=== PATIENT | female | born 1930 | race Caucasian/White ===

== ENCOUNTER 2016-09-22 18:19 | Emergency (ER) | payer OTHER ==
[~2016-09-22] VITALS: Ht 162.6 cm; Wt 61.2 kg
[~2016-09-22 18:19] MED LIST: CALC600T PO; CHOL1000 PO; CRD200 PO; CRG125 PO; LEVO50TA6 PO; LSX20 PO; NTRGSL/4 UT; OMEP20CA9 PO; POTA-74 PO; RANI150T2 PO; XNX25 PO
[2016-09-22 18:38] VITALS: TEMP 36.4; Ht 162.6 cm; Wt 61.2 kg
--- NOTE | 2016-09-22 20:06 | EMERGENCY ROOM VISIT NOTE ---
History Report prepared by Leidy: Aide Case Under the Supervision of: Dr. Rodney Ladd M.D. First contact with patient: 20:00 Chief Complaint: DIZZY Stated Complaint: FELL,HIT HEAD Nursing Triage Summary: pt fell and struck the back of her head at 1430, c/o feeling dizzy History of Present Illness The patient is a 86 year old female who presents to the Emergency Room with complaints of constant dizziness following a fall that occurred 5 hours prior to arrival. The patient states that she slipped due to her slippers and fell and hit the back of her head. She denies LOC but does state that after she was very dazed and dizzy. The patient notes and headache, slight neck pain and lower back pain. She denies abdominal pain or extremity pain. The patient has fallen twice in the past month and had a concussion. 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 Please see Additional Medical History Sheet. Past Medical & Surgical Medical Problems: (1) Heart disease (2) Hypertension (3) Incarcerated left inguinal hernia Family History Omitted due to advanced age Social History Smoking Status: Never Smoker Alcohol Use: none Drug Use: none Marital Status: Housing Status: lives with family Occupation Status: retired Current/Historical Medications Scheduled Alprazolam (Alprazolam), 0.25 MG PO QPM Amiodarone HCl (Amiodarone HCl), 200 MG PO QAM Calcium Carbonate (Calcium 600), 600 MG PO BID Carvedilol (Carvedilol), 12.5 MG PO BID Cholecalciferol (Vitamin D3), 1,000 INTER.UNIT PO QAM Levothyroxine Sodium (Levothyroxine Sodium), 50 MCG PO QAM Omeprazole (Prilosec), 40 MG PO QAM Potassium Chloride (Potassium Chloride Er), 10 MEQ PO BID Ranitidine HCl (Ranitidine HCl), 300 MG PO QPM Ranolazine (Ranexa), 500 MG PO BID Terazosin HCl (Terazosin HCl), 1 MG PO DAILY Scheduled PRN Furosemide (Furosemide), 20 MG PO QAM PRN for PRN Hydrocodone-Acetaminophen (Hydrocodone Bitartrate/Ac), 1 TAB PO DIRECTED PRN for Pain Nitroglycerin (Nitrostat), 0.4 MG UT UD PRN for Chest Pain Allergies Coded Allergies: Penicillins (Unverified Allergy, Severe, anaphylaxis, 09/22/16) Hydrochlorothiazide (Unverified Allergy, Unknown, UNKNOWN, 09/22/16) Physical Exam Vital Signs Date Time Temp Pulse Resp B/P Pulse Ox O2 Delivery O2 Flow Rate FiO2 09/22/16 21:52 71 18 159/81 98 09/22/16 20:59 78 16 172/86 96 Room Air 09/22/16 18:38 36.4 72 18 168/90 97 Room Air Physical Exam GENERAL: Patient awake, alert, oriented x 3. Patient follows commands. Patient does not appear toxic. Patient is adequately hydrated and well- nourished. SKIN: No erythema, pallor, cyanosis or rash. HEENT: No hematoma or skin break. Normal head, pupils equal, reactive to light and accommodation. Ears normal. Oral cavity and posterior pharynx appear normal. Neck: Without adenopathy, supple, nontender, no neck vein distention. LUNGS: Clear to auscultation. No wheezes, no rales, no rhonchi. HEART: No murmurs. No gallops. No rubs ABDOMEN: No masses, no rebound, no hepatomegaly or splenomegaly. EXTREMITIES: No signs of trauma. Stasis changes to bilateral lower legs, vague tenderness. NEUROLOGIC: Cranial nerves II-XII within normal limits. No gross motor sensory function deficits. Medical Decision & Procedures ER Provider Diagnostic Interpretation: CT results are interpretations by the radiologist and per my review. CT HEAD WITHOUT CONTRAST (CT) CLINICAL HISTORY: Head trauma. Dizziness. COMPARISON STUDY: 06/29/2016 TECHNIQUE: Axial CT of the brain is performed from the vertex to the skull base. IV contrast was not administered for this examination. CT DOSE: 537.48 mGy.cm FINDINGS: No intra or extra-axial mass lesions are visualized. There is no CT evidence of acute cortical infarction. There is no evidence of midline shift. There is no acute hemorrhage. No calvarial fractures are visualized. There are minimal white matter hypodensities likely on a small vessel basis. 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 There are involutional changes. There is no evidence of pathologic ventricular dilatation. There is no evidence of acute sinusitis IMPRESSION: No acute intracranial findings Electronically signed by: Ga Quintero M.D. 09/22/2016 8:34 PM Dictated Date/Time: 09/22/2016 8:33 PM ECG Indication: other (fall) Rate (beats per minute): 72 Rhythm: sinus rhythm Findings: PAC (occasional), no acute ischemic change ED Course B3: Past medical records reviewed. The patient was evaluated in room 2002. A complete history and physical examination was performed. 2148: Upon reevaluation, the patient appeared to have improvement of her symptoms. I discussed today's findings with her. She verbalized agreement of the treatment plan. She was discharged home. Medical Decision Nurses notes reviewed. Medical history sheet reviewed. Differential diagnosis includes but is not limited to: close head injury, fall. The patient incurred a mechanical fall when she slipped. EKG reveals no signs of acute infarction or significant arrhythmia. She does have occasional PACs. CAT scan of the head reveals no signs of an acute bleed or swelling. I do not believe the patient requires further imaging or blood work. She is currently on no anticoagulants. She is counseled about taking steps to prevent further falls. The patient's to take Tylenol as needed for headache. She is to follow- up with her family physician later this week. Impression Primary Impression: Closed head injury Scribe Attestation The scribe's documentation has been prepared under my direction and personally reviewed by me in its entirety. I confirm that the note above accurately reflects all work, treatment, procedures, and medical decision making performed by me. Departure Information Dispostion Home / Self-Care Referrals Abimael Pacheco M.D. (PCP) Forms HOME CARE DOCUMENTATION FORM, IMPORTANT VISIT INFORMATION Patient Instructions Falls Change Living Space, My [facility] [employer] Additional Instructions 650 mg of Tylenol every 4 hours as needed for headache. REST Follow-up with your family physician on Thursday. Return here sooner if your headache is getting worse or if you are having difficulty walking.
[2016-09-22] MEDS ORDERED: HYT1 PO (20:25)
[2016-09-22] MEDS ORDERED: RANO500T PO (20:25)
[2016-09-22] MEDS ORDERED: HYDR1TAB96 PO (20:25)
--- NOTE | 2016-09-22 20:35 | DIAGNOSTIC IMAGING REPORT ---
CT HEAD WITHOUT CONTRAST (CT) CLINICAL HISTORY: Head trauma. Dizziness. COMPARISON STUDY: 06/29/2016 TECHNIQUE: Axial CT of the brain is performed from the vertex to the skull base. IV contrast was not administered for this examination. CT DOSE: 537.48 mGy.cm FINDINGS: No intra or extra-axial mass lesions are visualized. There is no CT evidence of acute cortical infarction. There is no evidence of midline shift. There is no acute hemorrhage. No calvarial fractures are visualized. There are minimal white matter hypodensities likely on a small vessel basis. 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 There are involutional changes. There is no evidence of pathologic ventricular dilatation. There is no evidence of acute sinusitis IMPRESSION: No acute intracranial findings Electronically signed by: Ga Quintero M.D. 09/22/2016 8:34 PM Dictated Date/Time: 09/22/2016 8:33 PM
[2016-09-22 21:52] VITALS: BP 159/81; PULSE 71; O2SAT 98
== END 2016-09-22 21:53 | disposition home or self-care (01) ==
LOC: C.EDB 18:21
DX: S09.90XA Unspecified injury of head, initial encounter (principal); I11.9 Hypertensive heart disease without heart failure; Z79.899 Other long term (current) drug therapy; Z91.81 History of falling; Z87.828 Personal history of other (healed) physical injury and trauma; W01.10XA Fall on same level from slipping, tripping and stumbling with subsequent striking against unspecified object, initial encounter; Y99.8 Other external cause status

== ENCOUNTER 2017-04-28 20:59 | Emergency (ER) | payer OTHER ==
[~2017-04-28] VITALS: Ht 165.1 cm; Wt 62.1 kg
[~2017-04-28 20:59] MED LIST changes: +HYDR1TAB96 PO; +HYT1 PO; +RANO500T PO
[2017-04-28 21:04] VITALS: TEMP 36.5; Ht 165.1 cm; Wt 62.1 kg
--- NOTE | 2017-04-28 21:55 | EMERGENCY ROOM VISIT NOTE ---
History Report prepared by Leidy: Rey Davis Under the Supervision of: Dr. Albert Orourke D.O. First contact with patient: 21:46 Chief Complaint: HYPERTENSION Stated Complaint: HIGH BLOOD PRESSURE History of Present Illness The patient is a 87 year old female who presents to the Emergency Room with complaints of hypertension that began this afternoon. Her blood pressure has been fluctuating around 200/90. She notes to have taken it 3 different times today. Her baseline is normally 136-140/70-80. She states that her regular medications have not been working for her like they normally do. She denies any anxiety or medication changes. Source of History: patient Onset: this afternoon Position: other (Global) Symptom Intensity: 200/90 Quality: other (Hypertension) Timing: waxes/wanes Note: She denies any other symptoms. She denies any anxiety or medication changes as well. Review of Systems See HPI for pertinent positives and negatives. A total of ten systems were reviewed and were otherwise negative. Past Medical & Surgical Medical Problems: (1) Heart disease (2) Hypertension (3) Incarcerated left inguinal hernia Family History Omitted due to advanced age Social History Smoking Status: Never Smoker Alcohol Use: none Drug Use: none Marital Status: Housing Status: lives with family Occupation Status: retired Current/Historical Medications Scheduled Alprazolam (Alprazolam), 0.25 MG PO QPM Amiodarone HCl (Amiodarone HCl), 200 MG PO QAM Calcium Carbonate (Calcium 600), 600 MG PO BID Carvedilol (Carvedilol), 12.5 MG PO BID Cholecalciferol (Vitamin D3), 1,000 INTER.UNIT PO QAM Furosemide (Furosemide), 20 MG PO QAM Levothyroxine Sodium (Levothyroxine Sodium), 75 MG PO DAILY Omeprazole (Prilosec), 40 MG PO QAM Polyethylene (Polyethylene Glycol 3350), 1 DOSE PO DAILY Potassium Chloride (Potassium Chloride Er), 10 MEQ PO BID Ranitidine HCl (Ranitidine HCl), 300 MG PO QPM Ranolazine (Ranexa), 500 MG PO BID Terazosin Hcl (Hytrin), 2 MG PO DAILY Scheduled PRN Hydrocodone-Acetaminophen (Hydrocodone Bitartrate/Ac), 1 TAB PO DIRECTED PRN for Pain Nitroglycerin (Nitrostat), 0.4 MG UT UD PRN for Chest Pain Allergies Coded Allergies: Penicillins (Unverified Allergy, Severe, anaphylaxis, 04/28/17) Hydrochlorothiazide (Unverified Allergy, Unknown, UNKNOWN, 04/28/17) Physical Exam Vital Signs Date Time Temp Pulse Resp B/P (MAP) Pulse Ox O2 Delivery O2 Flow Rate FiO2 04/28/17 23:46 164/96 98 Room Air 04/28/17 23:31 181/80 04/28/17 23:30 56 18 95 04/28/17 23:01 187/87 04/28/17 23:00 57 15 98 04/28/17 22:47 57 16 183/83 96 Room Air 04/28/17 22:13 56 18 200/90 96 Room Air 04/28/17 22:12 95 Room Air 04/28/17 22:09 56 04/28/17 21:04 36.5 62 16 204/89 94 Room Air Physical Exam GENERAL: Awake, alert, well-appearing, in no distress HENT: Normocephalic, atraumatic. Oropharynx unremarkable. EYES: Normal conjunctiva. Sclera non-icteric. NECK: Supple. No nuchal rigidity. FROM. No JVD. RESPIRATORY: Clear to auscultation. CARDIAC: Regular rate, normal rhythm. Extremities warm and well perfused. Pulses equal. ABDOMEN: Soft, non-distended. No tenderness to palpation. No rebound or guarding. No masses. RECTAL: Deferred. MUSCULOSKELETAL: Chest examination reveals no tenderness. The back is symmetrical on inspection without obvious abnormality. There is no CVA tenderness to palpation. No joint edema. LOWER EXTREMITIES: Calves are equal size bilaterally and non-tender. No edema. No discoloration. NEURO: Normal sensorium. No sensory or motor deficits noted. SKIN: No rash or jaundice noted. Medical Decision & Procedures Laboratory Results 04/28/17 22:18 Red Blood Count 3.45, Mean Corpuscular Volume 100.0, Mean Corpuscular Hemoglobin 33.9, Mean Corpuscular Hemoglobin Concent 33.9, Mean Platelet Volume 8.5, Neutrophils (%) (Auto) 62.6, Lymphocytes (%) (Auto) 20.5, Monocytes (%) ( Auto) 13.2, Eosinophils (%) (Auto) 2.7, Basophils (%) (Auto) 0.4, Neutrophils # (Auto) 3.24, Lymphocytes # (Auto) 1.06, Monocytes # (Auto) 0.68, Eosinophils # ( Auto) 0.14, Basophils # (Auto) 0.02 04/28/17 22:18 Test 04/28/17 22:18 White Blood Count 5.17 K/uL (4.8-10.8) Red Blood Count 3.45 M/uL (4.2-5.4) Hemoglobin 11.7 g/dL (12.0-16.0) Hematocrit 34.5 % (37-47) Mean Corpuscular Volume 100.0 fL (80-100) Mean Corpuscular Hemoglobin 33.9 pg (25-34) Mean Corpuscular Hemoglobin Concent 33.9 g/dl (32-36) Platelet Count 180 K/uL (130-400) Mean Platelet Volume 8.5 fL (7.4-10.4) Neutrophils (%) (Auto) 62.6 % Lymphocytes (%) (Auto) 20.5 % Monocytes (%) (Auto) 13.2 % Eosinophils (%) (Auto) 2.7 % Basophils (%) (Auto) 0.4 % Neutrophils # (Auto) 3.24 K/uL (1.4-6.5) Lymphocytes # (Auto) 1.06 K/uL (1.2-3.4) Monocytes # (Auto) 0.68 K/uL (0.11-0.59) Eosinophils # (Auto) 0.14 K/uL (0-0.5) Basophils # (Auto) 0.02 K/uL (0-0.2) RDW Standard Deviation 49.2 fL (36.4-46.3) RDW Coefficient of Variation 13.7 % (11.5-14.5) Immature Granulocyte % (Auto) 0.6 % Immature Granulocyte # (Auto) 0.03 K/uL (0.00-0.02) Anion Gap 6.0 mmol/L (3-11) Est Creatinine Clear Calc Drug Dose 36.5 ml/min Estimated GFR () 62.3 Estimated GFR (Non- 53.8 BUN/Creatinine Ratio 16.1 (10-20) Calcium Level 8.8 mg/dl (8.5-10.1) Total Bilirubin 0.6 mg/dl (0.2-1) Direct Bilirubin 0.2 mg/dl (0-0.2) Aspartate Amino Transf (AST/SGOT) 20 U/L (15-37) Alanine Aminotransferase (ALT/SGPT) 16 U/L (12-78) Alkaline Phosphatase 75 U/L (45-117) Total Protein 7.0 gm/dl (6.4-8.2) Albumin 3.3 gm/dl (3.4-5.0) Medications Administered Medications (Trade) Dose Ordered Sig/Danelle Route Start Time Stop Time Status Last Admin Dose Admin Lorazepam (Ativan Tab) 0.5 mg NOW STAT PO 04/28/17 22:23 04/28/17 22:24 DC 04/28/17 22:44 0.5 MG Clonidine HCl (Catapres Tab) 0.2 mg NOW ONCE PO 04/28/17 22:30 04/28/17 22:31 DC 04/28/17 22:44 0.2 MG ECG Indication: other (HTN) Rate (beats per minute): 61 Rhythm: sinus rhythm Findings: nonspecific-ST abn, other (Normal intervals) ED Course 2145: The patient was evaluated in room B11B. A complete history and physical exam was performed. 2223: Ordered Ativan Tab 0.5 mg PO 2230: Ordered Catapres Tab 0.2 mg PO 0000: I reevaluated the patient. Discussed results and discharge instructions: She verbalized understanding and agreement. The patient is ready for discharge. Resting in no distress at midnight patient is nonfocal neurologically I discussed evaluation with the patient patient's family at bedside and her blood pressure is decreased we will refer her to her primary care physician for continued blood pressure control Medical Decision Differential diagnoses include hypertension, anxiety, and electrolyte abnormality. Medication Reconcilliation Current Medication List: was personally reviewed by me Blood Pressure Screening Patient's blood pressure: Elevated blood pressure Blood pressure disposition: Referred to PCP Impression Primary Impression: Hypertension Scribe Attestation The scribe's documentation has been prepared under my direction and personally reviewed by me in its entirety. I confirm that the note above accurately reflects all work, treatment, procedures, and medical decision making performed by me. Departure Information Dispostion Home / Self-Care Referrals Abimael Pacheco M.D. (PCP) Forms HOME CARE DOCUMENTATION FORM, IMPORTANT VISIT INFORMATION, WORK / SCHOOL INSTRUCTIONS Patient Instructions ED Hypertension Conf Out Of Control, My [facility] Additional Instructions Continue her blood pressure medications, follow-up primary care physician for further blood pressure evaluation
[2017-04-28 22:12] VITALS: O2SAT 95
[2017-04-28] MEDS ORDERED: LORAZEPAM 0.5 MG TAB PO STA (22:23)
[2017-04-28] MEDS ORDERED: HYT/2 PO (22:29)
[2017-04-28] MEDS ORDERED: LEVO75TA5 PO (22:29)
[2017-04-28] MEDS ORDERED: MRLP527 PO (22:29)
[2017-04-28] MEDS ORDERED: CLONIDINE HCL 0.1 MG TAB PO ONE (22:30)
[2017-04-28 22:36] LABS: BASO % 0.4 %; BASO ABS # 0.02 K/uL (0-0.2); COMPLETE YES; EOS % 2.7 %; HEMATOCRIT 34.5 % (37-47); IG% 0.6 %; LYMPH % 20.5 %; LYMPH ABS # 1.06 K/uL (1.2-3.4); MEAN CORPUSCULAR HEMOGLOBIN 33.9 pg (25-34); MEAN CORPUSCULAR HGB CONC 33.9 g/dl (32-36); MEAN PLATELET VOLUME 8.5 fL (7.4-10.4); MONO % 13.2 %; NEUT % 62.6 %; PLATELET COUNT 180 K/uL (130-400); RED BLOOD COUNT 3.45 M/uL (4.2-5.4); WHITE BLOOD COUNT 5.17 K/uL (4.8-10.8)
[2017-04-28 22:59] LABS: BUN/CREATININE RATIO 16.1 (10-20); CALCIUM 8.8 mg/dl (8.5-10.1); CREATININE 0.94 mg/dl (0.60-1.20); POTASSIUM 3.4 mmol/L (3.5-5.1)
[2017-04-28 23:30] VITALS: PULSE 56
[2017-04-28 23:46] VITALS: BP 164/96; O2SAT 98
== END 2017-04-29 00:01 | disposition home or self-care (01) ==
LOC: C.EDB 21:00
DX: I10 Essential (primary) hypertension (principal); Z79.899 Other long term (current) drug therapy

== ENCOUNTER 2017-09-20 16:51 | Emergency (ER) | payer OTHER ==
[~2017-09-20] VITALS: Ht 162.6 cm; Wt 62.0 kg
[~2017-09-20 16:51] MED LIST changes: +HYT/2 PO; -HYT1 PO; -LEVO50TA6 PO; +LEVO75TA5 PO; +MRLP527 PO
[2017-09-20 17:00] VITALS: TEMP 36.8; Ht 162.6 cm; Wt 62.0 kg
[2017-09-20] MEDS ORDERED: SODIUM CHLORIDE 0.9% 1000ML 1,000 ML IV STA (17:32)
[2017-09-20] MEDS ORDERED: SODIUM CHLORIDE 0.9% 250ML 250 ML IV STA (17:32)
--- NOTE | 2017-09-20 17:56 | DIAGNOSTIC IMAGING REPORT ---
CHEST ONE VIEW PORTABLE HISTORY: fall COMPARISON: Chest 06/29/2016. FINDINGS: No pneumothorax. No pleural effusions. Bibasilar linear densities consistent with subsegmental atelectasis. The lungs are otherwise clear. The heart is top normal in size. Lumbar spinal fusion hardware. Thoracic spine vertebral plasties. Large hiatus hernia, unchanged. IMPRESSION: No acute process within the chest. Large hiatus hernia. Electronically signed by: Donte Nunez M.D. 09/20/2017 5:55 PM Dictated Date/Time: 09/20/2017 5:54 PM
[2017-09-20 18:07] LABS: BASO % 0.2 %; BASO ABS # 0.01 K/uL (0-0.2); EOS % 1.4 %; EOS ABS # 0.09 K/uL (0-0.5); IG# 0.03 K/uL (0.00-0.02); LYMPH % 12.3 %; MEAN CELL VOLUME 102.3 fL (80-100); MEAN CORPUSCULAR HEMOGLOBIN 35.1 pg (25-34); MEAN CORPUSCULAR HGB CONC 34.3 g/dl (32-36); MEAN PLATELET VOLUME 9.1 fL (7.4-10.4); MONO % 11.6 %; MONO ABS # 0.76 K/uL (0.11-0.59); NEUT ABS # 4.84 K/uL (1.4-6.5); PLATELET COUNT 157 K/uL (130-400); RED CELL DISTRIBUTION WIDTH CV 13.8 % (11.5-14.5); WHITE BLOOD COUNT 6.53 K/uL (4.8-10.8)
[2017-09-20 18:17] LABS: INR 1.1 (0.9-1.1); PTT PATIENT 24.3 SECONDS (21.0-31.0)
[2017-09-20] MEDS ORDERED: GUAI100S6 PO (18:18)
[2017-09-20] MEDS ORDERED: TORS20TA2 PO (18:18)
[2017-09-20] MEDS ORDERED: BENZ1CAP90 PO (18:18)
[2017-09-20] MEDS ORDERED: ASPI81TA28 PO (18:18)
[2017-09-20] MEDS ORDERED: HYDR1TAB97 PO (18:18)
[2017-09-20] MEDS ORDERED: AMLO2.5T PO (18:18)
--- NOTE | 2017-09-20 18:19 | EMERGENCY ROOM VISIT NOTE ---
History Report prepared by Leidy: Selena Lord Under the Supervision of: Dr. Meg Gayle M.D. First contact with patient: 16:55 Chief Complaint: FALL Stated Complaint: FALL, LEG & BACK PAIN History of Present Illness The patient is an 87 year old female who presents to the Emergency Room with complaints of an episode of a fall occurring last night. The patient reports increase in falling in the last two months. She states that last night she went to get up to go to the kitchen when she became dizzy and fell backwards. She denies losing consciousness and states that her son helped her get back up. She reports that she didn't come in last night because she felt fine. She states that today she started having difficulty walking and she had head pain. The patient complains of feeling fatigued. The patient denies ever having vertigo, drinking enough water today, and urinary symptoms. The patient notes that she is normally steady on her feet. She also states that she has a álvaro in her back from a previous fall. The patient notes that she stopped taking blood thinners for atrial fibrillation a year ago, but still takes Aspirin daily. The patient notes that she had the flu three weeks ago. Source of History: patient Onset: last night Position: other (global) Timing: other (episode) Modifying Factors (Worsening): movement Associated Symptoms: + fatigue, No urinary symptoms Note: The patient complains of dizziness and head pain. Review of Systems See HPI for pertinent positives & negatives. A total of 10 systems reviewed and were otherwise negative. Past Medical & Surgical Medical Problems: (1) Heart disease (2) Hypertension (3) Incarcerated left inguinal hernia Family History Omitted due to advanced age Social History Smoking Status: Never Smoker Alcohol Use: none Drug Use: none Marital Status: Housing Status: lives with family Occupation Status: retired Current/Historical Medications Scheduled Alprazolam (Alprazolam), 0.25 MG PO QPM Amiodarone HCl (Amiodarone HCl), 200 MG PO QAM Amlodipine (Norvasc), 2.5 MG PO QAM Aspirin (Aspirin Ec), 81 MG PO QAM Calcium Carbonate (Calcium 600), 600 MG PO BID Carvedilol (Carvedilol), 12.5 MG PO BID Cholecalciferol (Vitamin D3), 1,000 INTER.UNIT PO QAM Ciprofloxacin Tab (Cipro), 250 MG PO BID Levothyroxine Sodium (Levothyroxine Sodium), 75 MG PO QAM Potassium Chloride (Potassium Chloride Er), 10 MEQ PO BID Ranitidine HCl (Ranitidine HCl), 300 MG PO QPM Ranolazine (Ranexa), 500 MG PO BID Terazosin Hcl (Hytrin), 2 MG PO DAILY AT 1100 & 1500 Torsemide (Demadex), 20 MG PO QAM Scheduled PRN Benzonatate (Tessalon Perles), 200-400 MG PO DIRECTED PRN for Cough Guaifenesin-Codeine (Guaifenesin/Codeine), 5-10 ML PO Q4 PRN for Cough Hydrocodone-Acetaminophen (Hydrocodone Bitartrate/Ac), 1 TAB PO TID PRN for BACK PAIN Nitroglycerin (Nitrostat), 0.4 MG UT UD PRN for Chest Pain Allergies Coded Allergies: Penicillins (Verified Allergy, Severe, anaphylaxis, 09/20/17) Hydrochlorothiazide (Verified Allergy, Unknown, UNKNOWN, 09/20/17) Physical Exam Vital Signs Date Time Temp Pulse Resp B/P (MAP) Pulse Ox O2 Delivery O2 Flow Rate FiO2 09/20/17 20:18 58 18 151/75 95 Room Air 09/20/17 18:50 59 16 155/72 97 Room Air 09/20/17 17:48 58 20 143/69 96 Room Air 09/20/17 17:45 61 137/61 59 143/69 09/20/17 17:00 36.8 59 152/78 96 Room Air Physical Exam Vital signs reviewed. General: Well-appearing, in no significant distress. HEENT: No scleral icterus, PERRLA, neck supple. Atraumatic. Cardiovascular: Regular rate and rhythm, no extra sounds. Pulmonary: Clear to auscultation bilaterally, normal work of breathing. Abdomen: Soft, nontender, nondistended, positive bowel sounds. Musculoskeletal: Atraumatic, no peripheral edema. Bruising to the left szymanski that appears to be healing. Tenderness along the cervical spine without step off or deformity. Neurologic: Patient awake alert and oriented x 3, full strength in all 4 extremities. Cranial nerves 2 through 12 grossly intact. Skin: Warm, dry, no rash Medical Decision & Procedures ER Provider Diagnostic Interpretation: Radiology results as stated below per my review and radiologist interpretation: HEAD CT NONCONTRAST CT DOSE: 1009.94 mGy.cm HISTORY: Head injury. fall, CHI TECHNIQUE: Multiaxial CT images of the head were performed without the use of intravenous contrast. Automated exposure control was utilized for this study. A dose lowering technique was utilized adhering to the principles of ALARA. Comparison: Head CT 09/22/2016. Findings: The paranasal sinuses and mastoid air cells are clear. The calvarium and skull base are intact. There is no mass, hematoma, midline shift, acute infarct. White matter hypodensity is nonspecific but suggestive of microvascular ischemic change. The ventricles and sulci demonstrate mild age-related involutional changes. Soft tissue gas at the skull base is likely due to prior intravenous line insertion. 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 Impression: No significant change compared to the prior study. No acute intracranial abnormality. Electronically signed by: Donte Nunez M.D. 09/20/2017 6:37 PM Dictated Date/Time: 09/20/2017 6:33 PM CHEST ONE VIEW PORTABLE HISTORY: fall COMPARISON: Chest 06/29/2016. FINDINGS: No pneumothorax. No pleural effusions. Bibasilar linear densities consistent with subsegmental atelectasis. The lungs are otherwise clear. The heart is top normal in size. Lumbar spinal fusion hardware. Thoracic spine vertebral plasties. Large hiatus hernia, unchanged. IMPRESSION: No acute process within the chest. Large hiatus hernia. Electronically signed by: Donte Nunez M.D. 09/20/2017 5:55 PM Dictated Date/Time: 09/20/2017 5:[address] DOSE: HISTORY: Fall. Neck pain. TECHNIQUE: Multiaxial CT images of the cervical spine were performed and reformatted in the sagittal and coronal plane without the use of contrast. A dose lowering technique was utilized adhering to the principles of ALARA. COMPARISON: Cervical spine CT 06/29/2016. FINDINGS: No fractures. No subluxation. Prevertebral soft tissues and the C1-C2 interval are intact. No pneumothorax. Trace gas within the neck is likely intravascular from prior line insertion. Advanced degenerative changes within the cervical spine. The C6-C7 vertebral bodies are fused. There is straightening of the cervical spine. IMPRESSION: No fractures within the cervical spine. Electronically signed by: Donte Nunez M.D. 09/20/2017 6:43 PM Dictated Date/Time: 09/20/2017 6:37 PM Laboratory Results 09/20/17 18:00 Red Blood Count 3.42, Mean Corpuscular Volume 102.3, Mean Corpuscular Hemoglobin 35.1, Mean Corpuscular Hemoglobin Concent 34.3, Mean Platelet Volume 9.1, Neutrophils (%) (Auto) 74.0, Lymphocytes (%) (Auto) 12.3, Monocytes (%) ( Auto) 11.6, Eosinophils (%) (Auto) 1.4, Basophils (%) (Auto) 0.2, Neutrophils # (Auto) 4.84, Lymphocytes # (Auto) 0.80, Monocytes # (Auto) 0.76, Eosinophils # ( Auto) 0.09, Basophils # (Auto) 0.01 09/20/17 18:00 Test 09/20/17 18:00 09/20/17 19:45 White Blood Count 6.53 K/uL (4.8-10.8) Red Blood Count 3.42 M/uL (4.2-5.4) Hemoglobin 12.0 g/dL (12.0-16.0) Hematocrit 35.0 % (37-47) Mean Corpuscular Volume 102.3 fL (80-100) Mean Corpuscular Hemoglobin 35.1 pg (25-34) Mean Corpuscular Hemoglobin Concent 34.3 g/dl (32-36) Platelet Count 157 K/uL (130-400) Mean Platelet Volume 9.1 fL (7.4-10.4) Neutrophils (%) (Auto) 74.0 % Lymphocytes (%) (Auto) 12.3 % Monocytes (%) (Auto) 11.6 % Eosinophils (%) (Auto) 1.4 % Basophils (%) (Auto) 0.2 % Neutrophils # (Auto) 4.84 K/uL (1.4-6.5) Lymphocytes # (Auto) 0.80 K/uL (1.2-3.4) Monocytes # (Auto) 0.76 K/uL (0.11-0.59) Eosinophils # (Auto) 0.09 K/uL (0-0.5) Basophils # (Auto) 0.01 K/uL (0-0.2) RDW Standard Deviation 52.0 fL (36.4-46.3) RDW Coefficient of Variation 13.8 % (11.5-14.5) Immature Granulocyte % (Auto) 0.5 % Immature Granulocyte # (Auto) 0.03 K/uL (0.00-0.02) Prothrombin Time 11.5 SECONDS (9.0-12.0) Prothromb Time International Ratio 1.1 (0.9-1.1) Activated Partial Thromboplast Time 24.3 SECONDS (21.0-31.0) Partial Thromboplastin Ratio 0.9 Anion Gap 7.0 mmol/L (3-11) Est Creatinine Clear Calc Drug Dose 20.2 ml/min Estimated GFR () 32.0 Estimated GFR (Non- 27.6 BUN/Creatinine Ratio 14.5 (10-20) Calcium Level 9.1 mg/dl (8.5-10.1) Total Bilirubin 0.7 mg/dl (0.2-1) Direct Bilirubin 0.2 mg/dl (0-0.2) Aspartate Amino Transf (AST/SGOT) 21 U/L (15-37) Alanine Aminotransferase (ALT/SGPT) 18 U/L (12-78) Alkaline Phosphatase 79 U/L (45-117) Total Protein 7.2 gm/dl (6.4-8.2) Albumin 3.3 gm/dl (3.4-5.0) Urine Color YELLOW Urine Appearance CLEAR (CLEAR) Urine pH 6.5 (4.5-7.5) Urine Specific Voss 1.012 (1.000-1.030) Urine Protein NEG (NEG) Urine Glucose (UA) NEG (NEG) Urine Ketones NEG (NEG) Urine Occult Blood NEG (NEG) Urine Nitrite POS (NEG) Urine Bilirubin NEG (NEG) Urine Urobilinogen NEG (NEG) Urine Leukocyte Esterase MODERATE (NEG) Urine WBC (Auto) >30 /hpf (0-5) Urine RBC (Auto) 0-4 /hpf (0-4) Urine Hyaline Casts (Auto) 1-5 /lpf (0-5) Urine Epithelial Cells (Auto) 0-5 /lpf (0-5) Urine Bacteria (Auto) 3+ (NEG) Date/Time Source Procedure Growth Status 09/20/17 19:45 Urine , Clean Catch Urine Culture - Final Escherichia Coli Complete Laboratory results per my review. Medications Administered Medications (Trade) Dose Ordered Sig/Danelle Route Start Time Stop Time Status Last Admin Dose Admin Sodium Chloride 250 ml @ 999 mls/hr Q16M STAT IV 09/20/17 17:32 09/20/17 17:47 DC 09/20/17 17:32 999 MLS/HR Acetaminophen (Tylenol Tab) 650 mg NOW STAT PO 09/20/17 19:08 09/20/17 19:10 DC 09/20/17 20:14 650 MG Ciprofloxacin (Ciprofloxacin Tab) 250 mg NOW STAT PO 09/20/17 20:08 09/20/17 20:10 DC 09/20/17 20:14 250 MG ED Course 165: Past medical records reviewed. The patient was evaluated in room C11B. A complete history and physical examination was performed. 1731: Ordered NSS 1000 ml @ 125 mls/hr IV, NSS 250 ml @ 999 mls/hr IV. 1907: Ordered Tylenol Tab 650 mg PO. 1955: I reevaluated the patient and she was able to walk to the bathroom well. She has no interest in rehab. 2007: Ordered Ciprofloxacin 250 mg PO. 2013: Upon reevaluation, the patient appeared to have improvement of her symptoms. I discussed findings with her. She verbalized agreement of the treatment plan. The patient was discharged home. Medical Decision Differential diagnosis: Intracranial injury, cervical spine injury, intrathoracic injury, intra- abdominal injury, musculoskeletal injury. This patient was evaluated and appeared to be in no significant distress. Physical examination reveals several sore areas including the neck without specific step-off or swelling. CT scan of the head and cervical spine reveal no evidence of acute traumatic findings. Chest x-ray is clear. The patient's laboratory work is fairly reassuring. UA is positive for infection. The patient was offered evaluation for inpatient rehabilitation however she declined. An ambulatory trial was performed at the bedside with nursing staff and a walker. The patient did very well. She was discharged in care of family members. She will be placed on Cipro 250 mg twice a day for 7 days. The patient was advised to return to the ER for worsening of symptoms or any medical concerns. She'll follow-up with her PCP this week. Medication Reconcilliation Current Medication List: was personally reviewed by me Blood Pressure Screening Patient's blood pressure: Elevated blood pressure Blood pressure disposition: Referred to PCP Impression Primary Impression: UTI (urinary tract infection) Additional Impressions: Closed head injury Fall Scribe Attestation The scribe's documentation has been prepared under my direction and personally reviewed by me in its entirety. I confirm that the note above accurately reflects all work, treatment, procedures, and medical decision making performed by me. Departure Information Dispostion Home / Self-Care Prescriptions Ciprofloxacin Tab (Cipro) 250 Mg Tab 250 MG PO BID for 7 Days, #14 TAB Prov: Meg Gayle M.D. 09/20/17 Referrals Abimael Pacheco M.D. (PCP) Forms HOME CARE DOCUMENTATION FORM, IMPORTANT VISIT INFORMATION Patient Instructions [facility] Additional Instructions Diagnosis: Urinary tract infection, fall, closed head injury Tylenol 650 mg every 6 hours as needed for pain. Cipro 250 mg twice daily for 7 days. Drink plenty of clear fluids. Use your walker when ambulating. Follow-up with your physician this week for reevaluation. Return to the emergency department for worsening of symptoms or any medical concerns. Problem Qualifiers
[2017-09-20 18:20] LABS: ALBUMIN 3.3 gm/dl (3.4-5.0); CALCIUM 9.1 mg/dl (8.5-10.1); CREATININE 1.63 mg/dl (0.60-1.20); POTASSIUM 4.2 mmol/L (3.5-5.1)
[2017-09-20 18:22] LABS: TOTAL PROTEIN 7.2 gm/dl (6.4-8.2)
--- NOTE | 2017-09-20 18:39 | DIAGNOSTIC IMAGING REPORT ---
HEAD CT NONCONTRAST CT DOSE: 1009.94 mGy.cm HISTORY: Head injury. fall, CHI TECHNIQUE: Multiaxial CT images of the head were performed without the use of intravenous contrast. Automated exposure control was utilized for this study. A dose lowering technique was utilized adhering to the principles of ALARA. Comparison: Head CT 09/22/2016. Findings: The paranasal sinuses and mastoid air cells are clear. The calvarium and skull base are intact. There is no mass, hematoma, midline shift, acute infarct. White matter hypodensity is nonspecific but suggestive of microvascular ischemic change. The ventricles and sulci demonstrate mild age-related involutional changes. Soft tissue gas at the skull base is likely due to prior intravenous line insertion. 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 Impression: No significant change compared to the prior study. No acute intracranial abnormality. Electronically signed by: Donte Nunez M.D. 09/20/2017 6:37 PM Dictated Date/Time: 09/20/2017 6:33 PM
--- NOTE | 2017-09-20 18:45 | DIAGNOSTIC IMAGING REPORT ---
CERVICAL SPINE CT CT DOSE: HISTORY: Fall. Neck pain. TECHNIQUE: Multiaxial CT images of the cervical spine were performed and reformatted in the sagittal and coronal plane without the use of contrast. A dose lowering technique was utilized adhering to the principles of ALARA. COMPARISON: Cervical spine CT 06/29/2016. FINDINGS: No fractures. No subluxation. Prevertebral soft tissues and the C1-C2 interval are intact. No pneumothorax. Trace gas within the neck is likely intravascular from prior line insertion. Advanced degenerative changes within the cervical spine. The C6-C7 vertebral bodies are fused. There is straightening of the cervical spine. IMPRESSION: No fractures within the cervical spine. Electronically signed by: Donte Nunez M.D. 09/20/2017 6:43 PM Dictated Date/Time: 09/20/2017 6:37 PM
[2017-09-20] MEDS ORDERED: ACETAMINOPHEN 325 MG TAB PO STA (19:08)
[2017-09-20] MEDS ORDERED: CIPROFLOXACIN 250 MG TAB PO STA (20:08)
[2017-09-20 20:18] VITALS: BP 151/75; PULSE 58; O2SAT 95
[2017-09-20] MEDS ORDERED: CIPR1TAB11 PO (20:20)
--- NOTE | 2017-09-22 13:47 | Pharmacy Progress Note ---
ED Pharmacist Culture FollowUp Date of Service: Sep 22, 2017. Patient was sent home with a prescription for Ciprofloxacin 250 mg BID x 7 days , which should cover the E. coli growing from the patient's urine culture.
== END 2017-09-20 20:27 | disposition home or self-care (01) ==
LOC: EDBD 16:51 → C.EDC 16:53
DX: N39.0 Urinary tract infection, site not specified (principal); S09.90XA Unspecified injury of head, initial encounter; R42 Dizziness and giddiness; W19.XXXA Unspecified fall, initial encounter; I10 Essential (primary) hypertension; Z79.82 Long term (current) use of aspirin